=== PATIENT | female | born 1975 | race African-American/Black ===

== ENCOUNTER 2024-11-07 15:25 | Outpatient (CLI) | payer OTHER, SELFPAY ==
[2024-11-07 16:02] LABS: Hematocrit 37.4 % (37.0-47.0); Hemoglobin 11.4 g/dL (12.0-15.0); Mean Corpuscular HGB Conc 30.5 g/dl (32-36); Mean Corpuscular Hemoglobin 26.1 pg (26-34); Mean Corpuscular Volume 85.6 fl (80-100); Mean Platelet Volume 9.1 fl (7.4-10.4); Platelet Count Result 496 k/mm3 (150-375); Red Blood Count 4.37 M/mm3 (4.2-5.4); Red Cell Distribution Width 14.1 % (11.5-14.5); White Blood Count 8.5 K/mm3 (4.5-10.0)
--- OUTSIDE RECORDS SUMMARY | 2024-11-07 16:11 | XMS_ITS | Continuity of Care Document ---
Author Organization [employer] Address [address] [place] [id number] Phone Care Team Providers Care Wash Barrel Leader Name Role Phone Michael Poe MD Unavailable Unavailable Advance Directives Directive Yes / No Effective Date File Name No Information Encounters Encounter Description Practice Location Reason(s) For Visit Diagnoses Date Provider Providers Copied on Encounter [place] [facility] [address] [place] [address], [id number], tel:[phone] [facility] Covid 19 Encntr for obs for susp expsr to oth biolg agents ruled out Lui Rodriguez. [address], [place], [id number], . tel:[phone] Family History Family Member Type Diagnosis Age At Onset No Information Payers Payer name Insurance type Covered republican ID Authoriza tion(s) No Information Social History Type Description Quantity Date Captured Comments Sex Female Smoking Status No Information Chief Complaint And Reason For Visit No Information History Of Present Illness Encounter Date Complaint History Of Prese nt Illness No Information Instructions Date Instruction Additional Infor mation No Information Assessments Type Assessment Date assessment Encntr for obs for susp expsr to oth biolg agents ruled out
[2024-11-07 17:25] LABS: Alanine Aminotransferase 26 U/L (6-35); Albumin Level 4.3 g/dL (3.5-5.1); Alkaline Phosphatase 121 U/L (38-126); Anion Gap 10 mmol/L (4-12); Aspartate Amino Transferase 32 U/L (14-36); Bilirubin,Total 0.6 mg/dL (0.2-1.3); Blood Urea Nitrogen 8 mg/dL (7-17); Calcium 8.9 mg/dL (8.4-10.2); Carbon Dioxide 25 mmol/L (22-30); Chloride 105 mmol/L (98-107); Cholesterol 172 mg/dL (0-200); Estimated Glomerular Filt Rate > 60; Glucose 83 mg/dL (65-110); HDL Direct 50 mg/dL; Potassium 3.8 mmol/L (3.4-5.0); Sodium 140 mmol/L (137-145); Triglycerides 74 mg/dL (<150)
[2024-11-07 17:36] LABS: LDL Cholesterol Direct 77 mg/dL
[2024-11-07 18:19] LABS: Hemoglobin A1C 4.6 % (<5.7)
== END 2024-11-07 15:26 | disposition home or self-care (01) ==
LOC: ANHLAB 15:27
PROVIDERS: PCP Nurse Practitioner Family; Visit Provider Nurse Practitioner Family
DX: Z00.00 Encounter for general adult medical examination without abnormal findings (principal); Z13.220 Encounter for screening for lipoid disorders; Z13.228 Encounter for screening for other metabolic disorders; Z13.1 Encounter for screening for diabetes mellitus; Z13.0 Encounter for screening for diseases of the blood and blood-forming organs and certain disorders involving the immune mechanism; Z76.89 Persons encountering health services in other specified circumstances; N95.1 Menopausal and female climacteric states; I10 Essential (primary) hypertension; E66.9 Obesity, unspecified; Z68.34 Body mass index [BMI] 34.0-34.9, adult
CPT/HCPCS: 36415; 80053; 80061; 83036; 84443; 85027

== ENCOUNTER 2025-01-09 08:35 | Outpatient (CLI) | payer OTHER, SELFPAY ==
[2025-02-04 11:04] VITALS: BMI 34.7
--- NOTE | 2025-02-04 11:04 | P.SLEEP_ITS ---
Sleep Study - Home Unattended Date of Study: 01/09/25 Ordering Provider: Yasmin Montaño APRN Interpreting Provider: Dora Good DO Home Sleep Study Type: Watch PAT Height: 1.71 m Weight: 102.058 kg Body Mass Index: 34.7 Neck Circumference (inches): 14 [place]: 4 Reason for Sleep Study Daytime hypersomnia Sleep History The patient is a 50-year-old female that had a sleep study ordered by her primary care for evaluation of sleep apnea. The patient admits to excessive daytime sleepiness, interruptions in breathing while asleep and trouble falling asleep. She does snore loudly. She does choke or gasp at night. She does have trouble breathing on her back. She does have morning headaches. She does have a dry or sore mouth/ throat in the morning. She denies nocturnal heartburn. She denies nocturia. She does have difficulty falling asleep. She denies having difficulty staying asleep. She does have difficulty returning to sleep if she wakes up throughout the night. She denies any hypnotic or sedative use. She denies feeling anxious about sleep. She does feel tired or sleepy during the day. She does feel tired in the morning. She does have the urge to fall asleep during the day. She does feel drowsy while driving. She denies sleep paralysis, cataplexy and hypnagogic/ hypnopompic hallucinations. She does clench or grind her teeth. She does kick or jerk her legs excessively. She denies having a restless feeling in her legs. She goes to bed at 9:00 p.m. on her work days and at 8:00 a.m. on her days off. It takes her 1 hour to fall asleep. She gets 6 hours of sleep on work days and 7 hours on her days off. Her sleep is a little more restorative on her days off. She denies taking any planned naps. She denies dream enactment behavior. She denies sleep walking. She consumes 1-2 cups of caffeinated beverage per day. She denies alcohol and tobacco use. She denies exercising on a regular basis. [facility] Past Medical History Medical History High blood pressure Headache, migraine Arthritis Allergies Family History Family History Mother Hypertension Social History Social History Smoking status: Never smoker Medications Home Medications ?Medication ?Instructions ?Recorded ?Confirmed ?Type tirzepatide (weight loss) 2.5 2.5 mg (0.5 mL) subcut WEEKLY #2 mL 11/08/24 Rx mg/0.5 mL subcutaneous pen injector (Zepbound) losartan 50 mg tablet 50 mg PO DAILY #90 tabs 12/04/24 Rx Sleep Procedure The sleep study was completed using [employer] a technically adequate device with seven channels: peripheral arterial tone, actigraphy, body position, snore, respiratory movement, pulse oximetry, sleep staging, and heart rate. Prior to using the device, the patient received verbal and written instructions for its application and was provided with the help desk phone number for additional telephonic instruction with 24-hour availability of qualified personnel to answer questions. The study was scored using CMS guidelines. Sleep Architecture The total recording time is 9 hrs, 15 min. The total sleep time is 8 hrs, 14 min. Sleep latency is 10 minutes. REM latency is 107 minutes. The patient had 6 episodes of waking. Sleep architecture shows 24.6% deep sleep, 48.0% light sleep, and (as % Total Sleep Time) showed NREM (Light 48.0%; Deep 24.6%), and a 27.4% stage REM. The patient spent 0.0% of total sleep time in the supine position. Sleep efficiency was 89.01. Respiratory Analysis The overall AHI (pAHI 4%:) is 15.6. The overall AHI (pAHI 3%:) is 24.1. The central AHI is 0.9. The AHI was 23.6 in NREM and 25.6 in REM sleep. The AHI was N/A in Supine and 24.1 in Non-supine sleep. Percent of Eduardo Portillo respirations is 0.0. Oximetry Data The oxygen desaturation index (LOUIE 4%:) is 12.9. The mean saturation is 95%, and the lowest saturation is 89%. Time spent with saturation < 88% is 0.0 minutes. Snoring Profile Snoring average intensity is 44 dB. The patient snored above 45 decibels for 142.0 minutes, 28.7% of sleep time. Cardiac Profile The average pulse rate is 63 beats per minutes. The lowest pulse rate is 48 bpm. The highest pulse rate reported is 100 bpm. Atrial fibrillation was not detected. Premature beats occur <0.1 per minute. Assessment and Plan Assessment and Plan (1) JÚNIOR (obstructive sleep apnea): Code(s): G47.33 - Obstructive sleep apnea (adult) (pediatric) Status: Acute Assessment and Plan: The patient had an overall AHI of 15.6 with desaturation down to 89%. This is consistent with moderate sleep apnea. I recommend that the patient be prescribed AutoPAP 5-15 cm H2O, CPAP mask/filters/tubing and heated humidity. A mandibular advancement device is also an acceptable treatment option. This should be used with all episodes of sleep.? Compliance should be reviewed within 31-90 days of starting therapy for usage greater than 4 hours per night greater than 70% of the nights. The patient should be asked about symptoms such as?excessive daytime sleepiness, quality of sleep, decreased nocturia, increased?mental functioning such as memory, mood, and concentration. Data The data obtained during this sleep study is adequate for interpretation. Certification This sleep study has been reviewed by a board certified sleep medicine physician.
== END 2025-01-10 09:47 | disposition home or self-care (01) ==
LOC: ANHCSM 08:36
PROVIDERS: PCP Nurse Practitioner Family; Visit Provider Nurse Practitioner Family
DX: G47.33 Obstructive sleep apnea (adult) (pediatric) (principal)
CPT/HCPCS: 95800